=== PATIENT | male | born 1980 | race Two or more races ===

== ENCOUNTER → 2020-02-04 | Outpatient (CLI) | payer MEDICAID ==
[2020-02-04 12:58] LABS: Basophils # (auto) 0 10 ^3/uL (0-0.2); Basophils % (auto) 0.4 % (0.0-2.0); Eosinophils # (auto) 0.2 10 ^3/uL (0-0.8); Eosinophils % (auto) 2.9 % (0.0-7.0); Hemoglobin 15.3 g/dL (13.5-17.5); Lymphocytes # (auto) 1.9 10 ^3/uL (0.4-5.4); Lymphocytes % (auto) 35.9 % (10.0-50.0); Mean Corpuscular Hemoglobin 30.2 pg (28.0-32.0); Mean Corpuscular Hgb Conc. 34.8 g/dL (32.0-36.0); Mean Corpuscular Volume 86.7 fL (80.0-100.0); Monocytes # (auto) 0.6 10 ^3/uL (0-1.3); Monocytes % (auto) 10.9 % (0.0-12.0); Neutrophils # (auto) 2.6 10 ^3/uL (1.6-8.6); Neutrophils % (auto) 49.9 % (37.0-80.0); Nucleated Red Blood Cells % 0.2 %; Platelet Count (auto) 206 10^3/uL (140-450); Red Blood Cells 5.07 10^6/uL (4.5-5.90); Red Cell Distribution Width 13.7 % (11.8-14.3); White Blood Cell 5.3 10^3/uL (4.4-10.8)
[2020-02-04 13:21] LABS: INR 0.97 (0.9-1.15)
[2020-02-04 13:32] LABS: Potassium 4.2 mmol/L (3.5-5.1)
[2020-02-04 13:44] LABS: Albumin 4.3 g/dL (3.4-5.0); BUN/Creatinine Ratio 17.3; Bilirubin, Total 0.6 mg/dL (0.2-1.0); Calcium 9.3 mg/dL (8.5-10.1); Total Protein 8.3 g/dL (6.4-8.2)
== END | disposition home or self-care (01) ==
LOC: LAB 12:03
PROVIDERS: ATTEND Internal Medicine Gastroenterology
DX: B18.2 Chronic viral hepatitis C (principal)
CPT/HCPCS: 36415; 80053; 80061; 83036; 84443; 85025; 85610; 87902

== ENCOUNTER 2020-12-27 16:55 | Emergency (ER) | payer MEDICAID ==
[~2020-12-27] VITALS: Ht 172.7 cm; Wt 117.9 kg
[2020-12-27 20:40] VITALS: BP 134/83
[2020-12-27] MEDS ORDERED: KETOROLAC TROMETH 60MG/2ML VIAL IM ONE (21:45)
[2020-12-27] MEDS ORDERED: methylPREDNISolone SOD SUCC 125 MG/2 ML VL IM ONE (21:45)
== END 2020-12-27 23:08 | disposition home or self-care (01) ==
LOC: ER 16:55
DX: M54.16 Radiculopathy, lumbar region (principal); M54.42 Lumbago with sciatica, left side; M62.830 Muscle spasm of back; E66.9 Obesity, unspecified; Z68.39 Body mass index [BMI] 39.0-39.9, adult
CPT/HCPCS: 96372; 99284; J1885; J2930

== ENCOUNTER 2021-01-20 15:15 | Emergency (ER) | payer MEDICAID, OTHER ==
[~2021-01-20] VITALS: Ht 172.7 cm; Wt 113.4 kg
[2021-01-20 15:48] VITALS: BP 155/90
[2021-01-20] MEDS ORDERED: ACETAMINOPHEN/CODEINE#3 (300/30mg) TAB PO ONE (16:45)
[2021-01-20] MEDS ORDERED: ONDANSETRON ODT 4 MG TAB PO ONE (16:45)
== END 2021-01-20 17:59 | disposition home or self-care (01) ==
LOC: ER 15:15
DX: S16.1XXA Strain of muscle, fascia and tendon at neck level, initial encounter (principal); S39.012A Strain of muscle, fascia and tendon of lower back, initial encounter; V43.52XA Car driver injured in collision with other type car in traffic accident, initial encounter; Y93.89 Activity, other specified; Y92.89 Other specified places as the place of occurrence of the external cause; Y99.8 Other external cause status
CPT/HCPCS: 72100; 72125; 99284; Q0162

== ENCOUNTER 2021-02-15 20:45 | Emergency (ER) | payer MEDICAID ==
[~2021-02-15] VITALS: Ht 175.3 cm; Wt 111.1 kg
[2021-02-15 20:54] VITALS: BP 138/95
== END 2021-02-16 01:32 | disposition left against medical advice (07) ==
LOC: ER 20:48
DX: J02.9 Acute pharyngitis, unspecified (principal); M79.10 Myalgia, unspecified site; Z20.822 Contact with and (suspected) exposure to COVID-19; Z53.21 Procedure and treatment not carried out due to patient leaving prior to being seen by health care provider
CPT/HCPCS: 36415; 87426

== ENCOUNTER 2022-01-09 18:10 | Emergency (ER) | payer BC, MEDICAID ==
[~2022-01-09] VITALS: Ht 175.3 cm; Wt 126.0 kg
[2022-01-09 18:22] VITALS: BP 167/107
== END 2022-01-09 21:43 | disposition left against medical advice (07) ==
LOC: ER 18:12
DX: M54.9 Dorsalgia, unspecified (principal); Z53.21 Procedure and treatment not carried out due to patient leaving prior to being seen by health care provider

== ENCOUNTER 2022-09-14 08:10 | Day surgery (SDC) | payer BC, MEDICAID ==
[2022-09-12 10:55] LABS: Basophils # (auto) 0 10 ^3/uL (0-0.2); Basophils % (auto) 0.6 % (0.0-2.0); Eosinophils # (auto) 0.2 10 ^3/uL (0-0.8); Hematocrit 44.1 % (41.0-53.0); Lymphocytes # (auto) 2.5 10 ^3/uL (0.4-5.4); Lymphocytes % (auto) 35.4 % (10.0-50.0); Mean Corpuscular Hemoglobin 28.9 pg (28.0-32.0); Mean Corpuscular Hgb Conc. 34.1 g/dL (32.0-36.0); Mean Corpuscular Volume 84.7 fL (80.0-100.0); Monocytes # (auto) 0.5 10 ^3/uL (0-1.3); Monocytes % (auto) 7.4 % (0.0-12.0); Neutrophils # (auto) 3.8 10 ^3/uL (1.6-8.6); Neutrophils % (auto) 53.6 % (37.0-80.0); Nucleated Red Blood Cells % 0.2 %; Red Blood Cells 5.21 10^6/uL (4.5-5.90); Red Cell Distribution Width 13.5 % (11.8-14.3); White Blood Cell 7.1 10^3/uL (4.4-10.8)
[2022-09-12 11:33] LABS: Urine Bacteria FEW /hpf (None Seen); Urine Blood Negative /uL (Negative); Urine Mucus FEW (None Seen); Urine Specific Gravity 1.026 (1.001-1.035); Urine WBC 1 /hpf (0 - 3)
[2022-09-12 11:43] LABS: Albumin 3.9 g/dL (3.4-5.0); BUN/Creatinine Ratio 10.4 (10.0-20.0); Calcium 8.9 mg/dL (8.5-10.1)
[2022-09-12 11:46] LABS: Bilirubin, Total 0.3 mg/dL (0.2-1.0); Total Protein 7.6 g/dL (6.4-8.2)
[2022-09-12 12:56] LABS: INR 0.98 (0.9-1.15); Partial Thromboplastin Time 26.4 SEC (24.5-34.5)
[~2022-09-14] VITALS: Ht 175.3 cm; Wt 122.5 kg
[~2022-09-14 08:10] MED LIST: LOSA25TA15 PO; METO25TA36 PO; SEMA0.25 SC
[2022-09-14] MEDS ORDERED: BUPIVACAINE IMPLANT 3x100mg IL ONE (08:15)
[2022-09-14] MEDS ORDERED: ceFAZolin 1GM/50ML 100 ML IV ONE (08:46)
[2022-09-14] MEDS ORDERED: LIDOCAINE W/ EPINEPHRINE 1% 20ML VIAL ONE (08:50)
[2022-09-14] MEDS ORDERED: SUCCINYLCHOLINE CHLORIDE 20 MG/ML 10ML VIAL IV ONE (09:12)
[2022-09-14] MEDS ORDERED: MIDAZOLAM HCL 2MG/2ML 2ml VIAL (1mg/ml) ONE (09:26)
[2022-09-14] MEDS ORDERED: fentaNYL CITRATE 5 ML ONE (09:26)
[2022-09-14] MEDS ORDERED: BUPIVACAINE 0.25% INJ 50ML VIAL ONE (09:29)
[2022-09-14] MEDS ORDERED: PROPOFOL 10 MG/ML 20 ML IV ONE (09:34)
[2022-09-14] MEDS ORDERED: LIDOCAINE 2% (LOCAL ANESTH.) PF 5ml SDV ONE (11:10)
[2022-09-14] MEDS ORDERED: ONDANSETRON HCL 4 MG/2 ML VIAL ONE (11:10)
[2022-09-14] MEDS ORDERED: GLYCOPYRROLATE 0.2 MG/ML 1ML VIAL ONE ×2 (11:25→11:38)
[2022-09-14] MEDS ORDERED: NEOSTIGMINE 1 MG/ML INJ (10mg/10ML VIAL) ONE (11:38)
[2022-09-14] MEDS ORDERED: MORPHINE SULFATE 4 MG/ML SYR/VIAL IV PRN ×2 (12:00)
[2022-09-14] MEDS ORDERED: ONDANSETRON HCL 4 MG/2 ML VIAL IV PRN (12:00)
[2022-09-14] MEDS ORDERED: ROCURONIUM 10MG/ML 10ML VIAL IV ONE (12:18)
[2022-09-14 12:35] VITALS: BP 122/77
== END 2022-09-14 12:49 | disposition home or self-care (01) ==
LOC: SUR 08:10
PROVIDERS: ATTEND Surgery
DX: K40.90 Unilateral inguinal hernia, without obstruction or gangrene, not specified as recurrent (principal); E11.9 Type 2 diabetes mellitus without complications; I10 Essential (primary) hypertension; Z79.899 Other long term (current) drug therapy; Z87.891 Personal history of nicotine dependence
CPT/HCPCS: 36415; 49505; 80053; 81001; 82962; 85025; 85610; 85730; 86850; 86900; 86901; C1781; C9089; J0330; J0690; J2001; J2250; J2405; J2704; J3010; J3490

== ENCOUNTER 2023-05-15 15:21 | Emergency (ER) | payer BC, MEDICAID ==
[2023-05-16] MEDS ORDERED: NAP500T PO (16:37)
[2023-05-16] MEDS ORDERED: AUG875T PO (16:37)
== END 2023-05-15 16:20 | disposition left against medical advice (07) ==
LOC: ER 15:21
DX: L02.413 Cutaneous abscess of right upper limb (principal); Z53.21 Procedure and treatment not carried out due to patient leaving prior to being seen by health care provider

== ENCOUNTER 2023-05-16 14:07 | Emergency (ER) | payer BC, MEDICAID ==
[~2023-05-16] VITALS: Ht 175.3 cm; Wt 100.2 kg
[2023-05-16] MEDS ORDERED: AUG875T PO (16:37)
[2023-05-16] MEDS ORDERED: NAP500T PO (16:37)
[2023-05-16] MEDS: cefTRIAXone SOD 1,000 MG VL IM ONE (16:59)
[2023-05-16] MEDS: KETOROLAC TROMETH 60MG/2ML VIAL IM ONE (16:59)
[2023-05-16 17:04] VITALS: BP 130/72; PULSE 74; RESP 16; TEMP 98.2; O2SAT 99
== END 2023-05-16 17:25 | disposition home or self-care (01) ==
LOC: ER 14:07
DX: L02.413 Cutaneous abscess of right upper limb (principal); Z79.899 Other long term (current) drug therapy
CPT/HCPCS: 96372; 99284; J0696; J1885

== ENCOUNTER 2023-10-17 12:54 | Emergency (ER) | payer BC, MEDICAID ==
[~2023-10-17] VITALS: Ht 175.3 cm; Wt 103.9 kg
[~2023-10-17 12:54] MED LIST changes: +AUG875T PO; +LOSA-533 PO; -LOSA25TA15 PO; +NAP500T PO
[2023-10-17 13:41] VITALS: BP 138/80; PULSE 92; RESP 18; TEMP 98.6; O2SAT 97
[2023-10-17 14:15] LABS: COVID19 ANTIGEN SOFIA FIA NEGATIVE (NEGATIVE)
[2023-10-17] MEDS: DexAMETHasone SOD PHOS 10MG/1ML VIAL INJ IM ONE (14:25)
[2023-10-17] MEDS: KETOROLAC TROMETH 60MG/2ML VIAL IM ONE (14:26)
[2023-10-17] MEDS ORDERED: ACET500T58 PO (14:44)
== END 2023-10-17 14:46 | disposition home or self-care (01) ==
LOC: ER 12:54
DX: B34.9 Viral infection, unspecified (principal); Z20.822 Contact with and (suspected) exposure to COVID-19
CPT/HCPCS: 36415; 87426; 96372; 99284; J1100; J1885

== ENCOUNTER 2025-02-12 02:03 | Inpatient (IN) | payer BC, MEDICAID ==
[~2025-02-12] VITALS: Ht 175.3 cm; Wt 112.4 kg
[~2025-02-12 02:03] MED LIST changes: +ACET500T58 PO
--- NOTE | 2025-02-12 02:19 | ED.PDOC ---
History of Present Illness HPI Comments This is a 44-year-old male who comes in with chief complaint of chest pain x2 days. The patient states that it increases when he takes a deep breath as well as when he moves. He states that he was coughing violently approximately one week ago and then developed the chest pain. He states that the pain is now an 8/10. It seems to be somewhat sharp and not associated with any nausea or vomiting. There has been no fever but the patient does state that he has some chills. He did come to the emergency department's with his mother. He has a history of hypertension. Chief Complaint: Chest Pain Time Seen by MD: 02:07 Primary Care Provider: Mary Reviewed Notes: Nurses Notes, Medications, Allergies (No allergies to medications) Allergies: Coded Allergies: NO KNOWN ALLERGIES (Unverified , 12/27/20) Home Meds Active Scripts Acetaminophen (Acetaminophen) 500 Mg Tab, 500 MG PO QIDPRN for 10 Days, #40 TAB 0 Refills Prov:DUNIA DUTTON [employer] 10/17/23 Amoxicillin & Pot Clavulanate (AUGMENTIN TABLET) 875 Mg Tb, 875 MG PO BID for 14 Days, #28 TAB 0 Refills Prov:DUNIA DUTTON [employer] 05/16/23 Naproxen (NAPROSYN TABLET) 500 Mg Tb, 1 TAB PO BID for 30 Days, #60 TAB 0 Refills Prov:DUNIA DUTTON [employer] 05/16/23 Reported Medications Semaglutide (Wegovy) Unknown Strength Inj, SC, INJ 09/12/22 Losartan Potassium (Losartan Potassium) 25 Mg Tab, 25 MG PO DAILY, TAB 09/12/22 Metoprolol Succinate (Toprol Xl) 25 Mg Tab, 25 MG PO DAILY, TAB 09/12/22 Information Source: Patient Mode of Arrival: Ambulatory Severity: Moderate Timing: Days (Symptoms started two days ago) Duration: Since onset Prehospital treatment: None Location: Right-sided chest pain with no radiation Associated signs and symptoms Shortness a breath Past Medical History PAST MEDICAL HISTORY: HTN, Liver Surgical History (Other): Hernia surgery Family History Family History: Family hx of liver toshia Social History Smoker: Non-Smoker Alcohol: Occasionally Drugs: Other (The patient is currently on methadone) Lives In: Home Constitutional: reports: chills; denies: diaphoresis, fatigue, fever, malaise, sweats, weakness, others EENTM: denies: blurred vision, double vision, ear bleeding, ear discharge, ear drainage, ear pain, ear ringing, eye pain, eye redness, hearing loss, mouth pain, mouth swelling, nasal discharge, nose bleeding, nose congestion, nose pain, photophobia, tearing, throat pain, throat swelling, voice changes, others Respiratory: reports: shortness of breath; denies: cough, hemoptysis, orthopnea, SOB at rest, SOB with excertion, stridor, wheezing, others Cardiovascular: reports: chest pain; denies: dizzy spells, diaphoresis, Dyspnea on exertion, edema, irregular heart beat, left arm pain, lightheadedness, palpitations, PND, syncope, others Gastrointestinal: denies: abdomen distended, abdominal pain, blood streaked bowels, constipated, diarrhea, dysphagia, difficulty swallowing, hematemesis, melena, nausea, poor appetite, poor fluid intake, rectal bleeding, rectal pain, vomiting, others Genitourinary: denies: burning, dysuria, flank pain, frequency, hematuria, incontinence, penile discharge, penile sore, pain, testicle pain, testicle swelling, urgency, others Neurological: denies: dizziness, fainting, headache, left sided numbness, left sided weakness, numbness, paresthesia, pre-existing deficit, right sided numbness, right sided weakness, seizure, speech problems, tingling, tremors, weakness, others Musculoskeletal: denies: back pain, gout, joint pain, joint swelling, muscle pain, muscle stiffness, neck pain, others Integumetry: denies: bruises, change in color, change in hair/nails, dryness, laceration, lesions, lumps, rash, wounds, others Allergic/Immunocompromised: denies: Difficulty Healing, Frequent Infections, Hives, Itching, others Hematologic/Lymphatic: denies: anemia, blood clots, easy bleeding, easy bruising, swollen glands, others Endocrine: denies: excessive hunger, excessive sweating, excessive thirst, excessive urination, flushing, intolerance to cold, intolerance to heat, unexplained weight gain, unexplained weight loss, others Psychiatric: denies: anxiety, bipolar disorder, depression, hopeless, panic disorder, schizophrenia, sleepless, suicidal, others Physical Exam General Appearance: Moderate Distress HEENT: Normal ENT Inspection, Pharynx Normal, TMs Normal Neck: Full Range of Motion, Non-Tender, Normal, Normal Inspection Respiratory: Chest Non-Tender, Lungs Clear, No Accessory Muscle Use, No Respiratory Distress, Normal Breath Sounds Cardiovascular: No Edema, No JVD, No Murmur, No Gallop, Normal Peripheral Pulses, Regular Rate/Rhythm Breast Exam: Deferred Gastrointestinal: No Organomegaly, Non Tender, No Pulsatile Mass, Normal Bowel Sounds, Soft Genitalia: Deferred Pelvic: Deferred Rectal: Deferred Extremities: No calf tenderness, Normal capillary refill, Normal inspection, Normal range of motion, Non-tender, No pedal edema Musculoskeletal : Apperance: Normal Neurologic: Alert, manager zone II-XII nml as Tested, No Motor Deficits, Normal Affect, Normal Mood, No Sensory Deficits Cerebellar Function: Normal Reflexes: Normal Skin: Dry, Normal Color, Warm Lymphatic: No Adenopathy Was a procedure done? Was a procedure done?: No EKG EKG : Pulse Rate (adult): 90 [place]: Normal Cardiac Rhythm: NSR ST: Nonsp (No ST changes) Differential Dx Considerations may include: PE, ACS, DE X-Ray, Labs, Meds, VS Vital Signs Date Time Temp Pulse Resp B/P (MAP) Pulse Ox O2 Delivery O2 Flow Rate FiO2 02/12/25 02:19 90 02/12/25 02:10 98.3 86 20 146/101 99 98.3 02/12/25 02:09 90 Lab Test 02/12/25 03:03 02/12/25 02:13 Range/Units Troponin I High Sensitivity Pending 3 L </=54 ng/L White Blood Count 8.3 4.4-10.8 10^3/uL Red Blood Count 4.99 4.5-5.90 10^6/uL Hemoglobin 14.2 13.5-17.5 g/dL Hematocrit 42.3 41.0-53.0 % Mean Corpuscular Volume 84.8 80.0-100.0 fL Mean Corpuscular Hemoglobin 28.4 28.0-32.0 pg Mean Corpuscular Hemoglobin Concent 33.5 32.0-36.0 g/dL Red Cell Distribution Width 13.4 11.8-14.3 % Platelet Count 244 140-450 10^3/uL Mean Platelet Volume 7.3 6.9-10.8 fL Neutrophils (%) (Auto) 55.0 37.0-80.0 % Lymphocytes (%) (Auto) 32.7 10.0-50.0 % Monocytes (%) (Auto) 9.3 0.0-12.0 % Eosinophils (%) (Auto) 1.7 0.0-7.0 % Basophils (%) (Auto) 1.3 0.0-2.0 % Neutrophils # (Auto) 4.6 1.6-8.6 10 ^3/uL Lymphocytes # (Auto) 2.7 0.4-5.4 10 ^3/uL Monocytes # (Auto) 0.8 0-1.3 10 ^3/uL Eosinophils # (Auto) 0.1 0-0.8 10 ^3/uL Basophils # (Auto) 0.1 0-0.2 10 ^3/uL Nucleated Red Blood Cells 0.1 % Sodium Level Pending Potassium Level Pending Chloride Level Pending Carbon Dioxide Level Pending Anion Gap Pending Blood Urea Nitrogen Pending Creatinine Pending Glomerular Filtration Rate Calc Pending BUN/Creatinine Ratio Pending Serum Glucose Pending Calcium Level Pending IV Hep-Lock is being established The patient was given aspirin here in the emergency department's The patient's CBC is within normal limits At this time the patient's chest x-ray shows: No sign of any abnormalities The patient's chest pain is persistent The patient received aspirin here in the emergency department's The patient is being admitted The patient was also somewhat hypertensive Images Reviewed?: Images reviewed and evaluated by me Time of 1ST Reevaluation: 02:18 Reevaluation 1ST: Unchanged Patient Education/Counseling: Diagnosis, Treatment, Prognosis Family Education/Counseling: No Family Present SEPSIS Sepsis Screen Physician Orders Basic Metabolic Panel (02/12/25 02:07) Troponin-I Hs (02/12/25 03:07) Troponin-I Hs (02/12/25 05:07) Electrocardigram (02/12/25 02:07) Electrocardigram (02/12/25 03:07) Electrocardigram (02/12/25 05:07) Chest Xray 1 View (02/12/25 02:07) Vital Signs Date Time Temp Pulse Resp B/P (MAP) Pulse Ox O2 Delivery O2 Flow Rate FiO2 02/12/25 02:19 90 02/12/25 02:10 98.3 86 20 146/101 99 98.3 02/12/25 02:09 90 Laboratory Tests Test 02/12/25 02:13 White Blood Count 8.3 10^3/uL (4.4-10.8) Departure 1 Departure Time of Disposition: 03:11 Impression: Primary Impression: Accelerated hypertension Additional Impression: Acute myocardial ischemia Disposition: ADMITTED INPATIENT Admit to: [facility] Condition: Fair Critical Care Note Critical Care Time?: Yes (45 min-critical care time only) Stability Stability form required: Yes Unstable for transfer: Telemetry monitoring (Telemetry monitoring required), Needs higher than EMT (Higher than EMT for transport) Heart Score Heart Score: Heart Score Response (Comments) Value History Slightly Suspicious 0 EKG Normal 0 Age <45 0 Risk Factors No known risk factors 0 Troponin Normal limit 0 Total 0 ALEC MARKS MD Feb 12, 2025 02:19
[2025-02-12 02:33] LABS: Hematocrit 42.3 % (41.0-53.0); Hemoglobin 14.2 g/dL (13.5-17.5); Mean Corpuscular Hemoglobin 28.4 pg (28.0-32.0); Mean Corpuscular Volume 84.8 fL (80.0-100.0); Nucleated Red Blood Cells % 0.1 %
[2025-02-12 02:58] LABS: Chloride 106 mmol/L (98-107); Potassium 3.7 mmol/L (3.5-5.1); Sodium 141 mmol/L (136-145)
[2025-02-12 02:59] LABS: Anion Gap 11 (5-15); Carbon Dioxide 24 mmol/L (20-31)
--- NOTE | 2025-02-12 02:59 | DVH ---
CHEST RADIOGRAPH Indication: CHEST PAIN Technique: Single frontal view of the chest was obtained Comparison: None IMPRESSION: Heart appears normal in size. The lungs appear clear without focal airspace opacity, effusion, or pneumothorax
[2025-02-12 03:00] LABS: Calcium 9.7 mg/dL (8.7-10.4)
[2025-02-12 03:04] LABS: Glucose 103 mg/dL (74-106)
[2025-02-12 03:05] LABS: BUN/Creatinine Ratio 13.6 (10.0-20.0); Blood Urea Nitrogen 12 mg/dL (9-23)
--- NOTE | 2025-02-12 04:04 | DVHHPRES ---
History of Present Illness Resident Creating Document: PALAK ANGELA RESIDENT History of Present Illness Torito Martin, a 44-year-old male with previous history of hypertension compliance with medicine, prediabetes, hepatitis-C virus positive, now on remission presented to the ER with the complaints of right-sided chest pain, aggravates on breathing. He also reports having cough with yellow sputum, not mixed with blood. The patient has shortness of breath which improves on sitting up and worsens on lying down. He denies any fever, abdominal pain, urinary symptoms or any other complaints. Past medical history: As above Past surgical history: Inguinal hernia repair Allergies: None Home medications: Losartan potassium 25 mg, metoprolol succinate 25 mg, Wegovy, naproxen, ibuprofen Smoking: Quit 1 year ago, previously 1 pack per week. 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 No marijuana or methamphetamine use. Family history: Noncontributory PCP: Dr. Andrei Hdez Code status: Full code Review of Systems Allergies: Coded Allergies: NO KNOWN ALLERGIES (Unverified , 12/27/20) Exam Vital Signs Vital Signs Date Time Temp Pulse Resp B/P (MAP) Pulse Ox O2 Delivery O2 Flow Rate FiO2 02/12/25 03:11 99.0 89 16 158/97 (117) 96 99.0 Exam Pt is lying on bed General Appearance: Alert, Oriented X3, Cooperative, Mild distress HEENT: Atraumatic, Mucous membranes moist/pink Respiratory: Clear to auscultation, Normal air movement, No added sounds Cardiovascular: Regular rate, Normal S1, Normal S2, No murmurs Abdominal/ : Active bowel sounds, Soft, no distention, no tenderness Extremities: No edema, Normal pulses, No tenderness/swelling Skin: No Significant rash, except past surgical scars Neuro: Normal speech, sensorimotor deficits none Psych/Mental Status: Mental status NL, Mood NL Nurse was there as professor of industrial technology during examination Labs/Xrays Labs Test 02/12/25 03:03 02/12/25 02:13 Range/Units Troponin I High Sensitivity 3 L </=54 ng/L White Blood Count 8.3 4.4-10.8 10^3/uL Red Blood Count 4.99 4.5-5.90 10^6/uL Hemoglobin 14.2 13.5-17.5 g/dL Hematocrit 42.3 41.0-53.0 % Mean Corpuscular Volume 84.8 80.0-100.0 fL Mean Corpuscular Hemoglobin 28.4 28.0-32.0 pg Mean Corpuscular Hemoglobin Concent 33.5 32.0-36.0 g/dL Red Cell Distribution Width 13.4 11.8-14.3 % Platelet Count 244 140-450 10^3/uL Mean Platelet Volume 7.3 6.9-10.8 fL Neutrophils (%) (Auto) 55.0 37.0-80.0 % Lymphocytes (%) (Auto) 32.7 10.0-50.0 % Monocytes (%) (Auto) 9.3 0.0-12.0 % Eosinophils (%) (Auto) 1.7 0.0-7.0 % Basophils (%) (Auto) 1.3 0.0-2.0 % Neutrophils # (Auto) 4.6 1.6-8.6 10 ^3/uL Lymphocytes # (Auto) 2.7 0.4-5.4 10 ^3/uL Monocytes # (Auto) 0.8 0-1.3 10 ^3/uL Eosinophils # (Auto) 0.1 0-0.8 10 ^3/uL Basophils # (Auto) 0.1 0-0.2 10 ^3/uL Nucleated Red Blood Cells 0.1 % Sodium Level 141 136-145 mmol/L Potassium Level 3.7 3.5-5.1 mmol/L Chloride Level 106 98-107 mmol/L Carbon Dioxide Level 24 20-31 mmol/L Anion Gap 11 5-15 Blood Urea Nitrogen 12 9-23 mg/dL Creatinine 0.88 0.700-1.30 mg/dL Glomerular Filtration Rate Calc 109 >90 mL/min BUN/Creatinine Ratio 13.6 10.0-20.0 Serum Glucose 103 74-106 mg/dL Calcium Level 9.7 8.7-10.4 mg/dL SEPSIS Sepsis Screen Date sepsis recognized/suspect: Feb 12, 2025 Time Sepsis recognized/suspect: 311 Recent Procedure: No On Antibiotic Therapy: No Respiratory Rate >20: No Heart Rate >90: No Temp<36 C (96.8 F) or >38.3 C: No SBP <90 or MAP <65 mmHG: No New Acute Mental Status Change: No Is the patient on CPAP, BIPAP,: No Physician Orders Troponin-I Hs (02/12/25 05:07) Electrocardigram (02/12/25 02:07) Electrocardigram (02/12/25 03:07) Electrocardigram (02/12/25 05:07) Chest Xray 1 View (02/12/25 02:07) Vital Signs Date Time Temp Pulse Resp B/P (MAP) Pulse Ox O2 Delivery O2 Flow Rate FiO2 02/12/25 03:11 99.0 89 16 158/97 (117) 96 99.0 02/12/25 02:19 90 02/12/25 02:10 98.3 86 20 146/101 99 98.3 02/12/25 02:09 90 Laboratory Tests Test 02/12/25 02:13 White Blood Count 8.3 10^3/uL (4.4-10.8) Medications Medications Dose Ordered Sig/Prashant Route Start Time Stop Time Status Last Admin Dose Admin Aspirin 162 mg ONCE ONCE PO 02/12/25 02:15 02/12/25 02:16 DC 02/12/25 03:10 162 MG Assessment/Plan Assessment/Plan Chest pain rule out ACS EKG reviewed: No ischemic changes Troponin WNL CXR: No acute abnormality detected Hypertensive heart disease metoprolol succinate losartan Echocardiography ordered Prediabetes Monitor blood glucose Consider HbA1c Hepatitis-C virus positive on remission Follow up outpatient with PCP and ID Obesity, class 2 BMI 36.6 patient is on Wegovy Counseled regarding healthy lifestyle modification GI prophylaxis: Pantoprazole DVT prophylaxis: Lovenox Diet: Cardiac Goals of care discussed with the patient for more than 27 minutes: Full code status Case discussed with Dr. Sanchez, patient and RN Plan discussed with: Patient, Other (RN) Date of Service: Feb 12, 2025 Billing Provider: SHELBY SANCHEZ MD Common Visit Codes: 97410-UMZMVBA INP/OBS CARE (HIGH) Secondary Visit Codes: [id number] CARE PLAN 30 MINUTES PALAK ANGELA Feb 12, 2025 04:04
--- NOTE | 2025-02-12 04:49 | ECG ---
[facility] Test Date: 2025-02-12 Test Time: 04:47:59 Pat Name: AMAN BARRAZA Department: ER Room: [address] [place] [address] Gender: M Nephrology Social Worker: YON : 1980 Requested By: ALEC MARKS Order Number: [id number] Reading MD: Reggie Lancaster Measurements Intervals [place] Rate: 73 P: 60 OK: 200 QRS: 100 QRSD: 114 T: 58 QT: 406 QTc: 448 Interpretive Statements Sinus rhythm Borderline intraventricular conduction delay Electronically Signed On 02-12-2025 17:51:02 PST by Reggie Lancaster Please click the below link to view image of tracing.
[2025-02-12] MEDS: METOPROLOL SUCCINATE XL 50 MG TAB PO ONE (04:53)
[2025-02-12] MEDS: LOSARTAN POTASSIUM 25 MG TAB PO ONE (04:54)
[2025-02-12 05:30] VITALS: BP 117/72; PULSE 81; RESP 20; TEMP 97.8; O2SAT 96
[2025-02-12] MEDS: PANTOPRAZOLE 40 MG TAB PO SCH (05:51)
--- NOTE | 2025-02-12 06:08 | ECG ---
[facility] Test Date: 2025-02-12 Test Time: 02:09:33 Pat Name: AMAN BARRAZA Department: ED Room: [address] [place] [address] Gender: M Avid Editor: URBANO : 1980 Requested By: ALEC MRAKS Order Number: [id number] Reading MD: Reggie Lancaster Measurements Intervals [place] Rate: 90 P: 54 ME: 205 QRS: 85 QRSD: 114 T: 46 QT: 380 QTc: 465 Interpretive Statements Sinus rhythm Borderline prolonged ME interval Borderline intraventricular conduction delay Electronically Signed On 02-12-2025 17:50:42 PST by Reggie Lancaster Please click the below link to view image of tracing.
[2025-02-12] MEDS ORDERED: ENOXAPARIN SOD 40 MG/0.4 ML SYRINGE SC SCH (10:00)
[2025-02-13] MEDS ORDERED: LOSARTAN POTASSIUM 25 MG TAB PO SCH (10:00)
[2025-02-13] MEDS ORDERED: METOPROLOL SUCCINATE XL 50 MG TAB PO SCH (10:00)
== END 2025-02-12 05:30 | disposition left against medical advice (07) | DRG 198 ==
LOC: ER 02:03 → OVERFLOW 04:05
PROVIDERS: ATTEND Emergency Medicine
DX: I24.9 Acute ischemic heart disease, unspecified (principal); I51.3 Intracardiac thrombosis, not elsewhere classified; B19.20 Unspecified viral hepatitis C without hepatic coma; E66.812 Obesity, class 2; I11.9 Hypertensive heart disease without heart failure; Z68.36 Body mass index [BMI] 36.0-36.9, adult; R73.03 Prediabetes; Z53.29 Procedure and treatment not carried out because of patient's decision for other reasons
CPT/HCPCS: 36415; 71045; 80048; 84484; 85025; 93005; 99291; G0378